=== PATIENT | male | born 1990 | race Two or more races ===

== ENCOUNTER 2016-10-31 19:35 | Emergency (ER) | payer SELFPAY ==
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
[2016-10-31] MEDS ORDERED: fentaNYL 100 MCG/2 ML INJ IVP ONE (20:03)
[2016-10-31 20:15] LABS: ADD DIFF? YES; ADD MORPH? NO; ADD SCAN? NO; ATYPICAL LYMPHOCYTE FLAG 30 (0-99); FRAGMENT RBC FLAG 0 (0-99); HEMATOCRIT 43.4 % (40.0-51.0); HEMOGLOBIN 15.1 g/dL (13.7-17.5); LEFT SHIFT FLG 70 (0-99); LIPEMIA HEMOLYSIS FLAG 90 (0-99); MEAN CELL HEMOGLOBIN 31.1 pg (27.9-34.1); MEAN CELL HEMOGLOBIN CONCENTR. 34.8 g/dL (32.4-36.7); MEAN CELL VOLUME 89.3 fL (81.5-99.8); MEAN PLATELET VOLUME 11.6 fL (8.7-11.7); PLATELET CLUMPS FLAG 0 (0-99); PLATELET COUNT 219 10^3/uL (150-400); RED BLOOD CELL COUNT 4.86 10^6/uL (4.40-6.38); RED CELL DISTRIBUTION WIDTH 12.2 % (11.5-15.2)
[2016-10-31 20:42] LABS: ANION GAP 11 mEq/L (8-16); CARBON DIOXIDE 18 mEq/l (22-31); CHLORIDE 109 mEq/L (97-110); GLOMERULAR FILTRATION RATE > 60; GLUCOSE 107 mg/dL (70-100); POTASSIUM 4.1 mEq/L (3.5-5.2); SODIUM 138 mEq/L (134-144)
[2016-10-31] MEDS ORDERED: NS 1,000 ML IV ONE (20:49)
--- NOTE | 2016-10-31 20:51 | CPEKG ---
Heart Rate: 105 RR Interval: 571 P-R Interval: 156 QRSD Interval: 82 QT Interval: 320 QTC Interval: 423 P [place]: 48 QRS [place]: 65 T Wave [place]: 7 EKG Severity - OTHERWISE NORMAL ECG - EKG Impression: SINUS TACHYCARDIA Electronically Signed By: William Souza 31-Oct-2016 22:09:31
[2016-10-31 20:55] LABS: PLATELET ESTIMATE ADEQUATE (ADEQ)
[2016-10-31 21:15] LABS: CK-MB INTERPRETATION NEGATIVE (NEGATIVE); CREATINE KINASE-MB FRACTION 1.75 ng/mL (0-3.19)
[2016-10-31] MEDS ORDERED: HYDROCOD/APAP 5/325 PREPACK#6 BTL TAKEHOME ONE (22:02)
[2016-10-31 22:21] VITALS: BP 124/84; PULSE 101; RESP 16; TEMP 98.4; O2SAT 94
== END 2016-10-31 22:21 | disposition home or self-care (01) ==
DX: S80.11XA Contusion of right lower leg, initial encounter (principal); S80.12XA Contusion of left lower leg, initial encounter; S80.212A Abrasion, left knee, initial encounter; W16.42XA Fall into unspecified water causing other injury, initial encounter
CPT/HCPCS: 96374; J3010